=== PATIENT | female | born 1980 | race Caucasian/White ===

== ENCOUNTER 2017-04-21 10:41 | Emergency (ER) | payer OTHER ==
[~2017-04-21] VITALS: Ht 165.1 cm; Wt 71.7 kg
[~2017-04-21 10:41] MED LIST: CYCL-319 PO; IBUP-1542 PO
[2017-04-21 10:43] VITALS: Ht 165.1 cm; Wt 71.7 kg
[2017-04-21 11:15] LABS: BASOPHIL # 0.1 10^3/ul (0.0-0.1); BASOPHILS % 0.8 % (0.0-2.0); EOSINOPHILS # 1.1 10^3/ul (0.0-0.5); EOSINOPHILS % 8.1 % (0.0-7.0); HEMATOCRIT 43.5 % (37.0-47.0); HEMOGLOBIN 14.5 g/dl (12.0-16.0); LYMPHOCYTES # 2.7 10^3/ul (0.8-2.9); MEAN CORPUSCULAR HEMOGLOBIN 29.2 pg (29.0-33.0); MEAN CORPUSCULAR HGB CONC 33.3 g/dl (32.0-37.0); MEAN CORPUSCULAR VOLUME 87.5 fl (82.0-101.0); MEAN PLATELET VOLUME 9.7 fl (7.4-10.4); MONOCYTE # 0.9 10^3/ul (0.3-0.9); MONOCYTES % 6.6 % (0.0-11.0); NEUTROPHIL # 8.5 10^3/ul (1.6-7.5); PLATELET COUNT 309 10^3/UL (140-415); RED BLOOD COUNT 4.97 10^6/ul (4.20-5.40); RED CELL DISTRIBUTION WIDTH 12.2 % (11.5-14.5); WHITE BLOOD COUNT 13.3 10^3/ul (4.8-10.8)
--- NOTE | 2017-04-21 12:16 | RADRPT ---
PROCEDURE: OB Ultrasound. CLINICAL INDICATION: Vaginal bleeding, . TECHNIQUE: Ultrasound of the pelvis was performed with transabdominal sonography in the axial and sa gittal planes. COMPARISON: No prior study is available for comparison. FINDINGS: The uterus appears normal in size and echotexture and demonstrates an intrauterine gestational sac w ith yolk sac, pole and cardiac activity at 148 beats per minute. The mean gestational sac size is 2.42 cm consistent with a 0-kezh-0-day gestation. Mean crown-rump length is 1.03 cm consistent w ith a 1-abxo-0-day gestation. There is a tiny subchorionic hemorrhage present. There are no adnexal masses. There is trace free fluid seen in the cul-de-sac. Right ovary appears normal in size and ec hotexture measuring 3.3 x 2.3 x 2.1 cm. Left ovary was not visualized. IMPRESSION: 1. Single living intrauterine gestation with a mean gestational age by ultrasound of 7 weeks 2 day s plus or minus 4 days. Estimated date of delivery by ultrasound is 12/06/2017. 2. Small subchorionic hemorrhage.. RPTAT: [facility] Physician Pro Date Time Electronically viewed and signed by Physician Pro on 04/21/2017 12:16 /
--- NOTE | 2017-04-21 12:33 | ERD ---
ER Documentation Chief Complaint Chief Complaint BRIGHT RED BLEEDING W/CLOTS, LMP 02/27/17 HPI 36-year-old female complains of some brownish bleeding with a few small clots over the last day. She feels possibly mild cramping but minimal. She is approximately 8 weeks by dates. She denies fevers, vomiting, shortness breath or chest pain. She is a G4 para 3. Receiving will be carried but is uncertain of her doctor's name. ROS All systems reviewed and are negative except as per history of present illness. 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 Head: Atraumatic Eyes: Normal Conjunctiva ENT: Normal External Ears, Nose and Mouth. Neck: Full range of motion..~ No meningismus. Resp: Clear to auscultation bilaterally Cardio: Regular rate and rhythm, no murmurs Abd: Soft, non tender, non distended. Normal bowel sounds Skin: No petechiae or rashes Back: No midline or flank tenderness Ext: No cyanosis, or edema Neur: Awake and alert Psych: Normal Mood and Affect Result Diagram: 04/21/17 1100 Results 24 hrs Laboratory Tests Test 04/21/17 11:00 White Blood Count 13.310^3/ul Red Blood Count 4.9710^6/ul Hemoglobin 14.5g/dl Hematocrit 43.5% Mean Corpuscular Volume 87.5fl Mean Corpuscular Hemoglobin 29.2pg Mean Corpuscular Hemoglobin Concent 33.3g/dl Red Cell Distribution Width 12.2% Platelet Count 57034^3/UL Mean Platelet Volume 9.7fl Neutrophils % 64.0% Lymphocytes % 20.0% Monocytes % 6.6% Eosinophils % 8.1% Basophils % 0.8% Nucleated Red Blood Cells % 0.0/100WBC Neutrophils # 8.510^3/ul Lymphocytes # 2.710^3/ul Monocytes # 0.910^3/ul Eosinophils # 1.110^3/ul Basophils # 0.110^3/ul Nucleated Red Blood Cells # 0.010^3/ul Procedures/MDM Patient is Rh+. Pelvic ultrasound shows normal-appearing and week 2 day intrauterine without evidence of ectopic . Small subchorionic hemorrhage. Stable amatory throughout the ED course. Patient presents with some brownish discharge or small amount of bleeding without current evidence of demise or or ectopic or additional acute abnormalities of . She will discharged home with primary care follow-up and OB follow- up and return precautions for fevers, worsening bleeding, pain, new or worsening symptoms. Departure Diagnosis: Primary Impression: Vaginal bleeding in patient at less than 20 weeks ges... Condition: Stable Patient Instructions: Bleeding During Early Additional Instructions: Ultrasound normal today. Recheck with OB or return for worsening pain, bleeding , fevers, new or worsening symptoms. JOHNNY CHAUDHARY MD Apr 21, 2017 12:33
[2017-04-21 12:52] VITALS: BP 122/74; PULSE 75; RESP 19
[2017-04-21 13:36] LABS: ADD UMIC YES; UR ASCORBIC ACID NEGATIVE (NEGATIVE); UR BACTERIA FEW /HPF (NONE SEEN); UR BILIRUBIN (Dip) NEGATIVE (NEGATIVE); UR BLOOD (Dip) 2+ mg/dL (NEGATIVE); UR CLARITY CLEAR (CLEAR); UR COLOR STRAW (YELLOW); UR GLUCOSE (Dip) NEGATIVE (NEGATIVE); UR KETONES (Dip) NEGATIVE (NEGATIVE); UR LEUKOCYTE ESTERASE (Dip) 1+ Leu/ul (NEGATIVE); UR NITRITE (Dip) NEGATIVE (NEGATIVE); UR RBC 1 /HPF (0-5); UR SPECIFIC GRAVITY (Dip) 1.003 (1.003-1.030); UR TOTAL PROTEIN (Dip) NEGATIVE (NEGATIVE); UR UROBILINOGEN (Dip) NEGATIVE (NEGATIVE)
== END 2017-04-21 12:54 | disposition home or self-care (01) ==
LOC: FTE 10:41
DX: O20.9 Hemorrhage in early pregnancy, unspecified (principal); R10.2 Pelvic and perineal pain; Z3A.08 8 weeks gestation of pregnancy
CPT/HCPCS: 36415; 76801; 76817; 81001; 84702; 85025; 86900; 86901; Z7502

== ENCOUNTER 2017-12-01 16:19 | Inpatient (IN) | END 2017-12-04 14:10 | disposition home or self-care (01) | DRG 775 ==